=== PATIENT | female | born 1955 | race African-American/Black ===

== ENCOUNTER 2017-01-02 04:25 | Emergency (ER) | payer MEDICARE, MEDICAID ==
[~2017-01-02] VITALS: Ht 152.4 cm; Wt 50.0 kg
[~2017-01-02 04:25] MED LIST: METF500T4 PO; RIVA10TA PO
[2017-01-02 10:07] VITALS: BP 109/63
== END 2017-01-02 10:09 | disposition home or self-care (01) ==
LOC: ER 08:21
DX: R53.81 Other malaise (principal); R42 Dizziness and giddiness; I99.8 Other disorder of circulatory system; E11.9 Type 2 diabetes mellitus without complications; Z88.1 Allergy status to other antibiotic agents; Z88.6 Allergy status to analgesic agent
CPT/HCPCS: 82962; 99283

== ENCOUNTER 2017-02-10 22:59 | Emergency (ER) | payer MEDICARE, MEDICAID | END 2017-02-11 00:05 | disposition left against medical advice (07) | LOC: ER 22:59 | DX: E11.9 Type 2 diabetes mellitus without complications (principal); Z53.21 Procedure and treatment not carried out due to patient leaving prior to being seen by health care provider | CPT/HCPCS: 82962 ==

== ENCOUNTER → 2020-01-23 | Outpatient (CLI) | payer MEDICARE, MEDICAID ==
[~2020-01-23] MED LIST changes: +METF-414 PO; -METF500T4 PO; -RIVA10TA PO
[2020-01-23 11:19] LABS: HEMATOCRIT. 39.4 % (36.0-48.0); HEMOGLOBIN. 12.8 g/dL (12.0-16.0); MEAN CORPUSCULAR VOLUME 89.5 fL (81.0-99.0); MEAN PLATELET VOLUME 8.8 fl (7.4-10.4); PLATELET 328 x1000/uL (130-400); RED CELL DISTRIBUTION WIDTH 13.2 % (11.6-14.6)
[2020-01-23 11:34] LABS: CHLORIDE 110 mEq/L (98-107)
[2020-01-23 11:37] LABS: CLARITY URINE CLEAR (CLEAR); COLOR URINE YELLOW (YELLOW); KETONES URINE NEGATIVE (NEGATIVE); LEUKOCYTE ESTERASE URINE TRACE (NEGATIVE); NITRITE URINE NEGATIVE (NEGATIVE); OCCULT BLOOD URINE NEGATIVE (NEGATIVE); PROTEIN URINE NEGATIVE (NEGATIVE); SPECIFIC GRAVITY URINE 1.025 (1.005-1.030); UROBILINOGEN URINE 0.2 E.U./dL (0.2-1.0)
[2020-01-23 11:42] LABS: LDL CHOLESTEROL 98 mg/dL (5-100)
[2020-01-23 11:43] LABS: HDL CHOLESTEROL 41 mg/dL (40-59)
[2020-01-23 21:12] LABS: PLATELET ESTIMATE NORMAL
== END | disposition home or self-care (01) ==
LOC: L&DPROCDR 09:54
PROVIDERS: ATTEND Specialist
DX: E55.9 Vitamin D deficiency, unspecified (principal); R73.9 Hyperglycemia, unspecified; E78.5 Hyperlipidemia, unspecified
CPT/HCPCS: 36415; 80053; 80061; 81003; 83036; 85025

== ENCOUNTER → 2020-03-25 | Outpatient (CLI) | payer MEDICARE, MEDICAID | END | disposition home or self-care (01) | LOC: LAB 11:26 | PROVIDERS: ATTEND Specialist | DX: Z20.828 Contact with and (suspected) exposure to other viral communicable diseases (principal) | CPT/HCPCS: C9803; U0003 ==

== ENCOUNTER 2020-03-27 08:26 | Day surgery (SDC) | payer MEDICARE, MEDICAID ==
[2020-03-27] MEDS ORDERED: SODIUM BICARBONATE 4% (2.4MEQ) 5ML VIAL IV ONE (09:23)
== END 2020-03-27 14:30 | disposition home or self-care (01) ==
LOC: RAD 08:26
PROVIDERS: ATTEND Specialist
DX: J90 Pleural effusion, not elsewhere classified (principal); J98.11 Atelectasis; I10 Essential (primary) hypertension; K21.9 Gastro-esophageal reflux disease without esophagitis; E11.9 Type 2 diabetes mellitus without complications; Z88.0 Allergy status to penicillin; Z88.5 Allergy status to narcotic agent; Z88.6 Allergy status to analgesic agent; Z79.84 Long term (current) use of oral hypoglycemic drugs; Z82.49 Family history of ischemic heart disease and other diseases of the circulatory system; Z83.3 Family history of diabetes mellitus; Z83.79 Family history of other diseases of the digestive system
CPT/HCPCS: 32555; 71045; 82945; 83615; 84157; 87070; 87102; 87116; 87205; 88108; 89050; J3490

== ENCOUNTER 2023-09-23 12:30 | Emergency (ER) | payer BC, MEDICAID ==
[~2023-09-23] VITALS: Ht 152.4 cm; Wt 48.0 kg
[2023-09-23 12:38] VITALS: O2SAT 98
[2023-09-23 13:09] LABS: BASOPHILS % 0.4 % (0.0-2.0); EOSINOPHILS % 0.7 % (0.0-5.0); HEMATOCRIT. 40.2 % (36.0-48.0); HEMOGLOBIN. 13.2 g/dL (12.0-16.0); LYMPHOCYTES % 13.5 % (20.0-50.0); MEAN CORPUSCULAR HEMOGLOBIN 29.7 pg (28.0-32.0); MEAN CORPUSCULAR HGB CONC 32.8 g/dL (31.0-37.0); MEAN CORPUSCULAR VOLUME 90.3 fL (81.0-99.0); MONOCYTES % 6.9 % (2.0-8.0); NEUTROPHILS % 78.5 % (40.0-76.0); PLATELET 325 x1000/uL (130-400); RED BLOOD CELL COUNT 4.45 mill/uL (4.2-5.4); RED CELL DISTRIBUTION WIDTH 13.7 % (11.6-14.6); WHITE BLOOD COUNT 6.1 x1000/uL (4.5-11.0)
[2023-09-23 13:17] LABS: INR 0.9; PROTHROMBIN TIME 10.4 sec (9.6-11.0)
[2023-09-23 13:23] LABS: CHLORIDE 104 mEq/L (98-107); POTASSIUM 3.4 mEq/L (3.5-5.1); SODIUM 141 mEq/L (136-145)
[2023-09-23 13:24] LABS: CALCIUM 7.9 mg/dL (8.7-10.4); CARBON DIOXIDE 34 mEq/L (21-32)
[2023-09-23 13:29] LABS: CREATININE 0.8 mg/dL (0.6-1.0); GLUCOSE 174 mg/dL (70-105); UREA NITROGEN BLOOD 17 mg/dL (9-23)
[2023-09-23] MEDS: ACETAMINOPHEN 325MG TABLET PO ONE (13:30)
[2023-09-23 15:15] VITALS: TEMP 98.8
[2023-09-23 16:08] VITALS: BP 114/44; PULSE 70; RESP 16
== END 2023-09-23 16:10 | disposition home or self-care (01) ==
LOC: ER 12:30
DX: S09.90XA Unspecified injury of head, initial encounter (principal); G89.11 Acute pain due to trauma; E11.9 Type 2 diabetes mellitus without complications; I10 Essential (primary) hypertension; Z88.0 Allergy status to penicillin; Z88.6 Allergy status to analgesic agent; Z88.5 Allergy status to narcotic agent; W18.30XA Fall on same level, unspecified, initial encounter; Y93.89 Activity, other specified; Y92.89 Other specified places as the place of occurrence of the external cause; Y99.8 Other external cause status
CPT/HCPCS: 36415; 70486; 80048; 85025; 86850; 86900; 99284